=== PATIENT | female | born 1960 | race Hispanic/Latino ===

== ENCOUNTER 2025-05-22 15:00 | Outpatient (RCR) | payer OTHER, MEDICARE | END 2025-05-23 | LOC: PT 15:00 | PROVIDERS: ATTEND Specialist | DX: M17.12 Unilateral primary osteoarthritis, left knee (principal) ==

== ENCOUNTER 2025-06-10 14:00 | Outpatient (RCR) | payer OTHER, MEDICARE | END 2025-06-23 | LOC: PT 14:00 | PROVIDERS: ATTEND Specialist | DX: M17.12 Unilateral primary osteoarthritis, left knee (principal) ==